=== PATIENT | male | born 1935 ===

== ENCOUNTER 2022-09-09 16:50 | Inpatient (IN) | payer MEDICARE ==
[~2022-09-09] VITALS: Ht 185.4 cm; Wt 77.2 kg
[2022-09-09] MEDS ORDERED: SODIUM CHLORIDE 0.9% 2,050 ML IV ONE (17:15)
[2022-09-09] MEDS ORDERED: 0.9% SODIUM CHLORIDE 10 ML SYRINGE IVP PRN (17:15)
[2022-09-09 17:26] LABS: GLUCOSE,POINT OF CARE > 600 MG/DL (70-110)
[2022-09-09] MEDS ORDERED: SODIUM CHLORIDE 0.9% 1,350 ML IV ONE (17:30)
[2022-09-09 17:39] LABS: BASOPHILS % (AUTO) 0.4 % (0.0-2.0); EOSINOPHILS % (AUTO) 0.1 % (1.0-6.0); HEMATOCRIT 42.2 % (41-53); HEMOGLOBIN 12.5 g/dL (13.5-17.5); LYMPHOCYTES # (AUTO) 1.4 K/uL (1.0-4.8); MEAN CORPUSCULAR HEMOGLOBIN 29.1 pg (26.0-34.0); MEAN CORPUSCULAR HGB CONC 29.7 G/dL (31.0-37.0); MEAN CORPUSCULAR VOLUME 98 fL (80-100); MONOCYTES # (AUTO) 0.8 K/uL (0.1-1.0); MONOCYTES % (AUTO) 6.8 % (2.0-9.0); NEUTROPHILS # (AUTO) 9.4 K/uL (1.8-7.7); NEUTROPHILS % (AUTO) 80.7 % (40.0-70.0); PLATELET COUNT (AUTO) 336 K/uL (150-450); RED BLOOD CELL COUNT(AUTO) 4.31 MIL/uL (4.50-5.90); RED CELL DISTRIBUTION WIDTH 16.6 % (11.5-14.5)
[2022-09-09] MEDS ORDERED: PHENYLEPHRINE HCL IN 0.9% NACL 400 MCG/10 ML SYRINGE IVP ONE (17:45)
[2022-09-09] MEDS ORDERED: INSULIN REGULAR, HUMAN 100 UNITS/ML IVP ONE ×2 (17:45→20:45)
[2022-09-09] MEDS ORDERED: PIPERACILLIN/TAZO 3.375 GM/D5W 50 ML IV ONE (17:45)
[2022-09-09 18:20] LABS: INR 1.2 (0.9-1.1)
[2022-09-09 18:32] LABS: ALANINE AMINOTRANSFERASE 38 U/L (12-78); ALBUMIN 1.9 g/dL (3.4-5.0); ALKALINE PHOSPHATASE 270 U/L (46-116); ANION GAP 28 mmol/L (8-16); ASPARTATE AMINOTRANSFERASE 43 U/L (15-37); BILIRUBIN,TOTAL 1.4 mg/dL (0.1-1.0); CARBON DIOXIDE 10 mmol/L (22-29); CHLORIDE 93 mmol/L (98-107); CREATININE 2.12 mg/dL (0.60-1.30); GLOMERULAR FILTR. RATE CALC 30 mL/min (>60); POTASSIUM 5.2 mmol/L (3.5-5.1); SODIUM SERUM 131 mmol/L (136-145); TOTAL PROTEIN, SERUM 6.6 g/dL (6.4-8.2); UREA NITROGEN, BLOOD 39 mg/dL (7-18)
[2022-09-09 18:34] LABS: GLUCOSE,RANDOM 710 mg/dL (70-110)
[2022-09-09 18:36] LABS: LACTIC ACID 10.3 mmol/L (0.4-2.0)
[2022-09-09 20:35] LABS: APPEARANCE,URINE CLEAR (CLEAR); BILIRUBIN,URINE NEGATIVE (NEGATIVE); GLUCOSE, URINE (UA) >=1000 mg/dL (NEGATIVE); KETONES,URINE 40-60 mg/dL (NEGATIVE); LEUKOCYTE ESTERASE ,URINE SMALL (NEGATIVE); NITRATE,URINE NEGATIVE (NEGATIVE); OCCULT BLOOD,URINE MODERATE (NEGATIVE); PROTEIN,URINE TRACE mg/dL (NEGATIVE); SPECIFIC GRAVITIY, URINE 1.023 (1.003-1.030); UROBILINOGEN,URINE <=1.0 mg/dL (<=1.0)
[2022-09-09 20:41] LABS: GLUCOSE,POINT OF CARE > 600 MG/DL (70-110)
[2022-09-09 20:44] LABS: BACTERIA,URINE None Seen /HPF (None Seen); RBC,URINE 0-2 /HPF (0-2); SQUAMOUS EPITHELIAL CELL,UR None Seen /LPF (None Seen)
[2022-09-09] MEDS ORDERED: PHENYLEPHRINE 200 MG/D5%-WATER 250 ML IV PRN (20:45)
[2022-09-09] MEDS ORDERED: DIGOXIN 250 MCG/ML 2 ML AMP IVP ONE (20:45)
[2022-09-09] MEDS ORDERED: *CLINICAL-MEROPENEM DOSING CLINICAL ONE (20:45)
[2022-09-09] MEDS ORDERED: SODIUM CHLORIDE 0.9% 500 ML IV ONE (20:45)
[2022-09-09] MEDS ORDERED: ACETAMINOPHEN 325 MG TABLET PO PRN (20:45)
[2022-09-09] MEDS ORDERED: ONDANSETRON HCL 4 MG/2 ML VIAL IVP PRN (20:45)
[2022-09-09] MEDS ORDERED: HEPARIN SODIUM,PORCINE 5,000 UNITS/ML VIAL IVP PRN ×2 (21:15)
[2022-09-09] MEDS: INSULIN REGULAR, HUMAN 100 UNITS in SODIUM CHLORIDE 0.9% 99 ML IV SCH ×2 (21:19)
[2022-09-09] MEDS ORDERED: SODIUM BICARBONATE [ADULT] 8.4% 50 MEQ/50 ML SYRINGE IVP ONE (21:30)
[2022-09-09] MEDS: SODIUM CHLORIDE 0.9% 1,000 ML IV SCH (21:31)
[2022-09-09] MEDS ORDERED: VANCOMYCIN 1GM/WATER(PEG/NADA) 200 ML IV PRN (21:45)
[2022-09-09] MEDS ORDERED: AMOX1TAB16 PO (22:10)
[2022-09-09] MEDS ORDERED: [UNRECOGNIZED DRUG - OTHER] BU (22:10)
[2022-09-09] MEDS ORDERED: VANCOMYCIN HCL 1.25 GM in DEXTROSE 5%-WATER 250 ML IV ONE (22:30)
[2022-09-09] MEDS: MEROPENEM 500 MG in SODIUM CHLORIDE 0.9% 50 ML IV SCH (22:34)
[2022-09-09 23:06] LABS: GLUCOSE,POINT OF CARE > 600 MG/DL (70-110)
[2022-09-09 23:39] LABS: CALCIUM, TOTAL 7.4 mg/dL (8.8-10.5); CREATININE 2.3 mg/dL (0.60-1.30); POTASSIUM 4.2 mmol/L (3.5-5.1)
[2022-09-10] MEDS ORDERED: HEPARIN SODIUM,PORCINE 5,000 UNITS/ML VIAL SQ SCH
[2022-09-10 00:11] LABS: GLUCOSE,POINT OF CARE > 600 MG/DL (70-110)
[2022-09-10] MEDS: HEPARIN SODIUM 25000 UNITS/D5W 250 ML IV PRN (00:52)
[2022-09-10 02:25] LABS: GLUCOSE,POINT OF CARE 559 MG/DL (70-110)
[2022-09-10 04:11] LABS: GLUCOSE,POINT OF CARE 579 MG/DL (70-110)
[2022-09-10 05:23] LABS: COVID AG,FIA SOURCE NASAL SWAB
[2022-09-10 05:31] LABS: GLUCOSE,POINT OF CARE 430 MG/DL (70-110)
[2022-09-10 05:41] LABS: CALCIUM, TOTAL 8.2 mg/dL (8.8-10.5); CREATININE 2.23 mg/dL (0.60-1.30); POTASSIUM 3.8 mmol/L (3.5-5.1)
[2022-09-10 06:02] LABS: BASOPHILS % (AUTO) 0.3 % (0.0-2.0); EOSINOPHILS % (AUTO) 0.2 % (1.0-6.0); HEMATOCRIT 39.4 % (41-53); HEMOGLOBIN 12.9 g/dL (13.5-17.5); LYMPHOCYTES # (AUTO) 0.9 K/uL (1.0-4.8); MEAN CORPUSCULAR HEMOGLOBIN 29.8 pg (26.0-34.0); MEAN CORPUSCULAR HGB CONC 32.8 G/dL (31.0-37.0); MEAN CORPUSCULAR VOLUME 91 fL (80-100); MONOCYTES # (AUTO) 1.2 K/uL (0.1-1.0); MONOCYTES % (AUTO) 7.6 % (2.0-9.0); NEUTROPHILS # (AUTO) 13.5 K/uL (1.8-7.7); PLATELET COUNT (AUTO) 324 K/uL (150-450); RED BLOOD CELL COUNT(AUTO) 4.33 MIL/uL (4.50-5.90); RED CELL DISTRIBUTION WIDTH 15.5 % (11.5-14.5)
[2022-09-10 06:19] LABS: NEUTROPHILS % (AUTO) 85.9 % (40.0-70.0)
[2022-09-10 06:51] LABS: GLUCOMETER DEV NAME(LOC) ERT.5; GLUCOSE,POINT OF CARE 375 MG/DL (70-110)
[2022-09-10 07:42] LABS: CALCIUM, TOTAL 8.2 mg/dL (8.8-10.5); CREATININE 2.04 mg/dL (0.60-1.30); POTASSIUM 3.6 mmol/L (3.5-5.1)
[2022-09-10 07:52] LABS: GLUCOSE,POINT OF CARE 383 MG/DL (70-110)
[2022-09-10 10:06] LABS: GLUCOSE,POINT OF CARE 274 MG/DL (70-110)
[2022-09-10] MEDS: SODIUM CHLORIDE 0.9% 1,000 ML IV SCH (11:07)
[2022-09-10] MEDS: MEROPENEM 500 MG in SODIUM CHLORIDE 0.9% 50 ML IV SCH ×2 (11:09→22:06)
[2022-09-10] MEDS: INSULIN REGULAR, HUMAN 100 UNITS in SODIUM CHLORIDE 0.9% 99 ML IV SCH ×2 (11:09)
[2022-09-10 11:31] LABS: GLUCOSE,POINT OF CARE 174 MG/DL (70-110)
[2022-09-10 12:00] VITALS: BP 89/43
[2022-09-10 12:04] LABS: CALCIUM, TOTAL 8.3 mg/dL (8.8-10.5); CREATININE 1.7 mg/dL (0.60-1.30); POTASSIUM 3.3 mmol/L (3.5-5.1)
[2022-09-10 12:16] LABS: GLUCOSE,POINT OF CARE 120 MG/DL (70-110)
[2022-09-10] MEDS ORDERED: INSREG SQ (13:26)
[2022-09-10] MEDS ORDERED: AMIODARONE HCL 360 MG in DEXTROSE 5%-WATER 242.8 ML IV ONE (13:30)
[2022-09-10] MEDS ORDERED: POTASSIUM CHLORIDE 20 MEQ ER TABLET PO PRN (13:45)
[2022-09-10] MEDS ORDERED: SODIUM CHLORIDE 0.9% 250 ML IV ONE (13:51)
[2022-09-10] MEDS: ALBUMIN HUMAN 25%-25GM/100ML 100 ML IV SCH ×2 (14:16→22:06)
[2022-09-10] MEDS: POTASSIUM CHL 10 MEQ/WATER 50 ML IV PRN ×3 (14:25→17:26)
[2022-09-10 15:27] LABS: CREATININE 1.55 mg/dL (0.60-1.30); POTASSIUM 3.7 mmol/L (3.5-5.1)
[2022-09-10 16:00] VITALS: BP 83/49
[2022-09-10] MEDS: INSULIN LISPRO 100 UNITS/ML SQ PRN ×2 (18:58→21:24)
[2022-09-10] MEDS ORDERED: DEXTROSE 50%-WATER 25 GM/50 ML SYRINGE IVP PRN (19:00)
[2022-09-10] MEDS ORDERED: AMIODARONE HCL 540 MG in DEXTROSE 5%-WATER 239.2 ML IV ONE (19:30)
[2022-09-10 20:00] VITALS: BP 121/77
[2022-09-10 20:16] LABS: GLUCOSE,POINT OF CARE 244 MG/DL (70-110)
[2022-09-11] VITALS: BP 104/85
[2022-09-11 00:31] LABS: GLUCOSE,POINT OF CARE 268 MG/DL (70-110)
[2022-09-11] MEDS ORDERED: SODIUM CHLORIDE 0.9% 250 ML IV ONE ×2 (01:10→22:42)
[2022-09-11] MEDS: SODIUM CHLORIDE 0.9% 1,000 ML IV SCH ×2 (01:50→16:15)
[2022-09-11] MEDS: HEPARIN SODIUM 25000 UNITS/D5W 250 ML IV PRN (01:51)
[2022-09-11 04:00] VITALS: BP 108/67
[2022-09-11] MEDS: ALBUMIN HUMAN 25%-25GM/100ML 100 ML IV SCH ×3 (05:48→21:36)
[2022-09-11 06:08] LABS: CALCIUM, TOTAL 8.4 mg/dL (8.8-10.5); CREATININE 1.35 mg/dL (0.60-1.30)
[2022-09-11] MEDS: INSULIN LISPRO 100 UNITS/ML SQ PRN ×4 (06:34→21:19)
[2022-09-11 08:00] VITALS: BP 140/81
[2022-09-11 08:51] LABS: GLUCOSE,POINT OF CARE 267 MG/DL (70-110)
[2022-09-11] MEDS ORDERED: VANCOMYCIN 1GM/WATER(PEG/NADA) 200 ML IV ONE (09:00)
[2022-09-11] MEDS: MEROPENEM 1 GM in SODIUM CHLORIDE 0.9% 100 ML IV SCH ×2 (10:16→21:36)
[2022-09-11 12:00] VITALS: BP 111/70
[2022-09-11] MEDS: AMIODARONE HCL 750 MG in DEXTROSE 5%-WATER 485 ML IV SCH (14:37)
[2022-09-11 16:00] VITALS: BP 114/82
[2022-09-11] MEDS: DIGOXIN 250 MCG/ML 2 ML AMP IVP SCH ×2 (17:51→23:36)
[2022-09-11 19:06] LABS: GLUCOSE,POINT OF CARE 396 MG/DL (70-110)
[2022-09-11 19:06] LABS: GLUCOSE,POINT OF CARE 290 MG/DL (70-110)
[2022-09-11 20:00] VITALS: BP 118/55
[2022-09-11] MEDS ORDERED: FURO40 PO (20:52)
[2022-09-11] MEDS ORDERED: ATOR40TA28 PO (20:52)
[2022-09-11] MEDS ORDERED: XALA2.5OS OU (20:52)
[2022-09-11] MEDS ORDERED: CYAN-42 IM (20:52)
[2022-09-11] MEDS ORDERED: METO-558 PO (20:52)
[2022-09-11] MEDS ORDERED: IODOG TP (20:52)
[2022-09-11] MEDS ORDERED: ASPI-1450 PO (20:52)
[2022-09-12] VITALS (7 sets, daily range): BP systolic 106–135; BP diastolic 53–80
[2022-09-12 01:26] LABS: GLUCOSE,POINT OF CARE 295 MG/DL (70-110)
[2022-09-12] MEDS: HEPARIN SODIUM 25000 UNITS/D5W 250 ML IV PRN (01:49)
[2022-09-12] MEDS: SODIUM CHLORIDE 0.9% 1,000 ML IV SCH ×2 (02:53→20:26)
[2022-09-12] MEDS: ALBUMIN HUMAN 25%-25GM/100ML 100 ML IV SCH ×3 (05:30→22:02)
[2022-09-12 06:01] LABS: GLUCOSE,POINT OF CARE 277 MG/DL (70-110)
[2022-09-12] MEDS: DIGOXIN 250 MCG/ML 2 ML AMP IVP SCH (06:04)
[2022-09-12] MEDS: INSULIN LISPRO 100 UNITS/ML SQ PRN ×4 (06:05→20:38)
[2022-09-12 06:12] LABS: BASOPHILS % (AUTO) 0.2 % (0.0-2.0); EOSINOPHILS % (AUTO) 1.3 % (1.0-6.0); HEMATOCRIT 30.8 % (41-53); HEMOGLOBIN 10.4 g/dL (13.5-17.5); LYMPHOCYTES # (AUTO) 1.7 K/uL (1.0-4.8); LYMPHOCYTES % (AUTO) 24.1 % (22.0-44.0); MEAN CORPUSCULAR HEMOGLOBIN 29.9 pg (26.0-34.0); MEAN CORPUSCULAR HGB CONC 33.8 G/dL (31.0-37.0); MEAN CORPUSCULAR VOLUME 89 fL (80-100); MONOCYTES # (AUTO) 0.5 K/uL (0.1-1.0); MONOCYTES % (AUTO) 7.5 % (2.0-9.0); NEUTROPHILS # (AUTO) 4.7 K/uL (1.8-7.7); NEUTROPHILS % (AUTO) 66.9 % (40.0-70.0); PLATELET COUNT (AUTO) 223 K/uL (150-450); RED BLOOD CELL COUNT(AUTO) 3.48 MIL/uL (4.50-5.90); RED CELL DISTRIBUTION WIDTH 15.2 % (11.5-14.5)
[2022-09-12 06:22] LABS: ALANINE AMINOTRANSFERASE 18 U/L (12-78); ALBUMIN 3.2 g/dL (3.4-5.0); ALKALINE PHOSPHATASE 130 U/L (46-116); ANION GAP 8 mmol/L (8-16); ASPARTATE AMINOTRANSFERASE 22 U/L (15-37); CALCIUM, TOTAL 8.3 mg/dL (8.8-10.5); CARBON DIOXIDE 26 mmol/L (22-29); CHLORIDE 103 mmol/L (98-107); CREATININE 0.98 mg/dL (0.60-1.30); GLOMERULAR FILTR. RATE CALC > 60 mL/min (>60); GLUCOSE,RANDOM 308 mg/dL (70-110); PHOSPHORUS 2.1 mg/dL (2.5-4.9); POTASSIUM 4.4 mmol/L (3.5-5.1); SODIUM SERUM 137 mmol/L (136-145); TOTAL PROTEIN, SERUM 5.7 g/dL (6.4-8.2); UREA NITROGEN, BLOOD 31 mg/dL (7-18)
[2022-09-12] MEDS ORDERED: VANCOMYCIN 1GM/WATER(PEG/NADA) 200 ML IV SCH (08:00)
[2022-09-12] MEDS: MEROPENEM 1 GM in SODIUM CHLORIDE 0.9% 100 ML IV SCH ×2 (10:10→18:03)
[2022-09-12] MEDS ORDERED: SODIUM PHOS,M-BASIC-D-BASIC 20 MMOL in DEXTROSE 5%-WATER 150 ML IV ONE (11:00)
[2022-09-12] MEDS: AMIODARONE HCL 750 MG in DEXTROSE 5%-WATER 485 ML IV SCH (14:07)
[2022-09-12 16:07] LABS: SPECIMENTYPE,BODY FLUID PLEURAL
[2022-09-12 18:19] LABS: APPEARANCE,SPUN,BODY FLUID CLEAR (CLEAR); APPEARANCE,UNSPUN,BODY FLUID CLOUDY (CLEAR); COLOR,BODY FLUID YELLOW (LT YELLOW); LYMPHOCYTES,BODY FLUID 54 %; NEUTROPHILS,BODY FLUID 46 %; PH, BODY FLUID 9; TOTAL VOLUME,BODY FLUID 1250 mL; WBC, BODY FLUID 360 /cu. mm.
[2022-09-12 18:20] LABS: BASOPHILS,BODY FLUID 0 %; EOSINOPHILS,BF (ANAL) 0 %; MONOCYTES,BODY FLUID 0 %
[2022-09-12 19:46] LABS: GLUCOSE,POINT OF CARE 303 MG/DL (70-110)
[2022-09-12] MEDS: VANCOMYCIN HCL 750 MG in DEXTROSE 5%-WATER 250 ML IV SCH (19:57)
[2022-09-12] MEDS: AMIODARONE HCL 200 MG TABLET PO SCH (20:42)
[2022-09-12 20:51] LABS: GLUCOSE,POINT OF CARE 372 MG/DL (70-110)
[2022-09-12] MEDS ORDERED: INSULIN GLARGINE,HUM.REC.ANLOG 100 UNITS/ML SQ SCH (22:45)
[2022-09-13] VITALS (7 sets, daily range): BP systolic 109–144; BP diastolic 61–108
[2022-09-13] MEDS: MEROPENEM 1 GM in SODIUM CHLORIDE 0.9% 100 ML IV SCH ×3 (01:22→17:59)
[2022-09-13 05:01] LABS: GLUCOMETER DEV NAME(LOC) 5N.2C; GLUCOSE,POINT OF CARE 228 MG/DL (70-110)
[2022-09-13] MEDS: ALBUMIN HUMAN 25%-25GM/100ML 100 ML IV SCH ×3 (05:42→22:55)
[2022-09-13] MEDS: INSULIN LISPRO 100 UNITS/ML SQ PRN ×4 (05:49→20:56)
[2022-09-13 06:06] LABS: GLUCOMETER DEV NAME(LOC) 5S.2C; GLUCOSE,POINT OF CARE 99 MG/DL (70-110)
[2022-09-13 06:45] LABS: BASOPHILS % (AUTO) 0.2 % (0.0-2.0); EOSINOPHILS % (AUTO) 1.8 % (1.0-6.0); HEMATOCRIT 31.8 % (41-53); HEMOGLOBIN 10.7 g/dL (13.5-17.5); LYMPHOCYTES % (AUTO) 28.5 % (22.0-44.0); MEAN CORPUSCULAR HEMOGLOBIN 29.5 pg (26.0-34.0); MEAN CORPUSCULAR HGB CONC 33.7 G/dL (31.0-37.0); MEAN CORPUSCULAR VOLUME 87 fL (80-100); MONOCYTES # (AUTO) 0.5 K/uL (0.1-1.0); MONOCYTES % (AUTO) 6.8 % (2.0-9.0); NEUTROPHILS # (AUTO) 4.5 K/uL (1.8-7.7); NEUTROPHILS % (AUTO) 62.7 % (40.0-70.0); PLATELET COUNT (AUTO) 196 K/uL (150-450); RED BLOOD CELL COUNT(AUTO) 3.65 MIL/uL (4.50-5.90)
[2022-09-13 07:07] LABS: ANION GAP 6 mmol/L (8-16); CALCIUM, TOTAL 7.9 mg/dL (8.8-10.5); CARBON DIOXIDE 27 mmol/L (22-29); CHLORIDE 105 mmol/L (98-107); CREATININE 0.73 mg/dL (0.60-1.30); GLOMERULAR FILTR. RATE CALC > 60 mL/min (>60); GLUCOSE,RANDOM 93 mg/dL (70-110); POTASSIUM 3.7 mmol/L (3.5-5.1); SODIUM SERUM 138 mmol/L (136-145); UREA NITROGEN, BLOOD 21 mg/dL (7-18)
[2022-09-13] MEDS: VANCOMYCIN HCL 750 MG in DEXTROSE 5%-WATER 250 ML IV SCH ×2 (08:14→19:41)
[2022-09-13] MEDS: AMIODARONE HCL 200 MG TABLET PO SCH ×2 (08:22→20:46)
[2022-09-13 09:46] LABS: GLUCOMETER DEV NAME(LOC) 5N.2C; GLUCOSE,POINT OF CARE 180 MG/DL (70-110)
[2022-09-13] MEDS: INSULIN GLARGINE,HUM.REC.ANLOG 100 UNITS/ML SQ SCH ×2 (10:38→20:55)
[2022-09-13] MEDS: APIXABAN 5 MG TABLET PO SCH ×2 (10:54→20:46)
[2022-09-13 11:31] LABS: GLUCOMETER DEV NAME(LOC) 5N.2C; GLUCOSE,POINT OF CARE 225 MG/DL (70-110)
[2022-09-13] MEDS ORDERED: APIXABAN 5 MG TABLET PO SCH (21:00)
[2022-09-13] MEDS ORDERED: INSULIN GLARGINE,HUM.REC.ANLOG 100 UNITS/ML SQ SCH (21:00)
[2022-09-13 21:07] LABS: GLUCOMETER DEV NAME(LOC) 5S.2C; GLUCOSE,POINT OF CARE 176 MG/DL (70-110)
[2022-09-13] MEDS: LATANOPROST 0.005% 2.5 ML OPHTHALMIC SOLUTION OU SCH (23:23)
[2022-09-14 00:19] VITALS: BP 125/66
[2022-09-14] MEDS: MEROPENEM 1 GM in SODIUM CHLORIDE 0.9% 100 ML IV SCH ×3 (01:17→17:41)
[2022-09-14 01:26] LABS: GLUCOMETER DEV NAME(LOC) 5N.2C; GLUCOSE,POINT OF CARE 176 MG/DL (70-110)
[2022-09-14 03:50] VITALS: BP 121/71
[2022-09-14] MEDS: SODIUM CHLORIDE 0.9% 1,000 ML IV SCH (04:14)
[2022-09-14 04:46] LABS: GLUCOMETER DEV NAME(LOC) 5S.2C; GLUCOSE,POINT OF CARE 171 MG/DL (70-110)
[2022-09-14] MEDS: ALBUMIN HUMAN 25%-25GM/100ML 100 ML IV SCH ×3 (06:07→21:36)
[2022-09-14 07:17] LABS: ANION GAP 5 mmol/L (8-16); CALCIUM, TOTAL 8.3 mg/dL (8.8-10.5); CARBON DIOXIDE 30 mmol/L (22-29); CHLORIDE 103 mmol/L (98-107); CREATININE 0.81 mg/dL (0.60-1.30); GLOMERULAR FILTR. RATE CALC > 60 mL/min (>60); GLUCOSE,RANDOM 101 mg/dL (70-110); POTASSIUM 4.2 mmol/L (3.5-5.1); SODIUM SERUM 138 mmol/L (136-145); UREA NITROGEN, BLOOD 17 mg/dL (7-18); VANCOMYCIN,RANDOM 15.1 mcg/mL (25.0-50.0)
[2022-09-14 07:37] VITALS: BP 136/74
[2022-09-14] MEDS: APIXABAN 5 MG TABLET PO SCH ×2 (09:13→21:16)
[2022-09-14] MEDS: VANCOMYCIN 1GM/WATER(PEG/NADA) 200 ML IV SCH ×3 (09:13→21:14)
[2022-09-14] MEDS: AMIODARONE HCL 200 MG TABLET PO SCH ×2 (09:14→21:16)
[2022-09-14] MEDS: ATORVASTATIN CALCIUM 40 MG TABLET PO SCH (09:14)
[2022-09-14] MEDS: INSULIN LISPRO 100 UNITS/ML SQ PRN ×3 (11:59→21:22)
[2022-09-14 12:02] LABS: GLUCOMETER DEV NAME(LOC) 5N.2C; GLUCOSE,POINT OF CARE 191 MG/DL (70-110)
[2022-09-14 12:12] LABS: LACTATE DEHYDROGENASE 204 U/L (85-227); TOTAL PROTEIN, SERUM 5.7 g/dL (6.4-8.2)
[2022-09-14 12:24] VITALS: BP 122/68
[2022-09-14] MEDS ORDERED: DEXTROSE 50%-WATER 25 GM/50 ML SYRINGE IVP PRN (13:00)
[2022-09-14 16:33] VITALS: BP 130/76
[2022-09-14 18:21] LABS: GLUCOMETER DEV NAME(LOC) 5N.2C; GLUCOSE,POINT OF CARE 230 MG/DL (70-110)
[2022-09-14 19:18] VITALS: BP 128/74
[2022-09-14 20:46] LABS: GLUCOMETER DEV NAME(LOC) 5N.2C; GLUCOSE,POINT OF CARE 177 MG/DL (70-110)
[2022-09-14] MEDS: LATANOPROST 0.005% 2.5 ML OPHTHALMIC SOLUTION OU SCH (20:49)
[2022-09-14] MEDS ORDERED: INSULIN GLARGINE,HUM.REC.ANLOG 100 UNITS/ML SQ SCH (21:00)
[2022-09-15] MEDS: MEROPENEM 1 GM in SODIUM CHLORIDE 0.9% 100 ML IV SCH ×3 (02:55→17:22)
[2022-09-15] MEDS: ALBUMIN HUMAN 25%-25GM/100ML 100 ML IV SCH ×3 (05:58→22:12)
[2022-09-15 06:03] LABS: ANION GAP 6 mmol/L (8-16); CALCIUM, TOTAL 8.4 mg/dL (8.8-10.5); CARBON DIOXIDE 29 mmol/L (22-29); CHLORIDE 103 mmol/L (98-107); CREATININE 0.66 mg/dL (0.60-1.30); GLOMERULAR FILTR. RATE CALC > 60 mL/min (>60); GLUCOSE,RANDOM 50 mg/dL (70-110); SODIUM SERUM 138 mmol/L (136-145); UREA NITROGEN, BLOOD 14 mg/dL (7-18)
[2022-09-15 06:18] VITALS: BP 148/91
[2022-09-15 06:37] LABS: GLUCOMETER DEV NAME(LOC) 5N.2C; GLUCOSE,POINT OF CARE 157 MG/DL (70-110)
[2022-09-15 06:37] LABS: GLUCOMETER DEV NAME(LOC) 5N.2C; GLUCOSE,POINT OF CARE 46 MG/DL (70-110)
[2022-09-15 07:43] VITALS: BP 147/72
[2022-09-15] MEDS: APIXABAN 5 MG TABLET PO SCH ×2 (08:52→21:22)
[2022-09-15] MEDS: ATORVASTATIN CALCIUM 40 MG TABLET PO SCH (08:52)
[2022-09-15] MEDS: AMIODARONE HCL 200 MG TABLET PO SCH ×2 (08:53→21:48)
[2022-09-15] MEDS: VANCOMYCIN 1GM/WATER(PEG/NADA) 200 ML IV SCH ×2 (08:55→20:00)
[2022-09-15] MEDS: INSULIN LISPRO 100 UNITS/ML SQ PRN ×3 (12:50→21:27)
[2022-09-15] MEDS ORDERED: SODIUM CHLORIDE 0.9% 100 ML ONE (12:54)
[2022-09-15] MEDS: GuaiFENesin/D-METHORPHAN/PHENYLEPH 5 ML LIQUID ORAL.SYG PO PRN ×2 (12:59→21:49)
[2022-09-15 16:21] VITALS: BP 137/69
[2022-09-15 20:37] VITALS: BP 138/72
[2022-09-15] MEDS: LATANOPROST 0.005% 2.5 ML OPHTHALMIC SOLUTION OU SCH (21:22)
[2022-09-15] MEDS: INSULIN GLARGINE,HUM.REC.ANLOG 100 UNITS/ML SQ SCH (21:28)
[2022-09-15 22:56] LABS: GLUCOMETER DEV NAME(LOC) 6N.1; GLUCOSE,POINT OF CARE 352 MG/DL (70-110)
[2022-09-15 22:57] LABS: GLUCOMETER DEV NAME(LOC) 6N.1; GLUCOSE,POINT OF CARE 250 MG/DL (70-110)
[2022-09-15 22:57] LABS: GLUCOMETER DEV NAME(LOC) 6N.1; GLUCOSE,POINT OF CARE 189 MG/DL (70-110)
[2022-09-16] MEDS: MEROPENEM 1 GM in SODIUM CHLORIDE 0.9% 100 ML IV SCH ×2 (02:00→10:22)
[2022-09-16 03:53] VITALS: BP 147/84
[2022-09-16] MEDS: ALBUMIN HUMAN 25%-25GM/100ML 100 ML IV SCH ×2 (06:12→14:53)
[2022-09-16] MEDS ORDERED: SODIUM CHLORIDE 0.9% 500 ML IV ONE (06:31)
[2022-09-16 07:03] LABS: ANION GAP 7 mmol/L (8-16); CALCIUM, TOTAL 8.5 mg/dL (8.8-10.5); CARBON DIOXIDE 28 mmol/L (22-29); CHLORIDE 100 mmol/L (98-107); CREATININE 0.68 mg/dL (0.60-1.30); GLOMERULAR FILTR. RATE CALC > 60 mL/min (>60); GLUCOSE,RANDOM 114 mg/dL (70-110); POTASSIUM 4.2 mmol/L (3.5-5.1); SODIUM SERUM 135 mmol/L (136-145); UREA NITROGEN, BLOOD 17 mg/dL (7-18); VANCOMYCIN,RANDOM 20.5 mcg/mL (25.0-50.0)
[2022-09-16] MEDS: APIXABAN 5 MG TABLET PO SCH (08:07)
[2022-09-16] MEDS: AMIODARONE HCL 200 MG TABLET PO SCH (08:07)
[2022-09-16] MEDS: ATORVASTATIN CALCIUM 40 MG TABLET PO SCH (08:08)
[2022-09-16] MEDS: VANCOMYCIN 1GM/WATER(PEG/NADA) 200 ML IV SCH (08:09)
[2022-09-16 08:25] VITALS: BP 177/105
[2022-09-16 09:30] VITALS: BP 155/95
[2022-09-16] MEDS: INSULIN GLARGINE,HUM.REC.ANLOG 100 UNITS/ML SQ SCH (09:52)
[2022-09-16] MEDS ORDERED: METOPROLOL TARTRATE 25 MG TABLET PO SCH (12:00)
[2022-09-16] MEDS: INSULIN LISPRO 100 UNITS/ML SQ PRN (12:07)
[2022-09-16 13:51] LABS: GLUCOMETER DEV NAME(LOC) 6N.1; GLUCOSE,POINT OF CARE 191 MG/DL (70-110)
[2022-09-16 13:51] LABS: GLUCOMETER DEV NAME(LOC) 6N.1; GLUCOSE,POINT OF CARE 114 MG/DL (70-110)
[2022-09-16 16:12] VITALS: BP 127/67
[2022-09-17 02:16] LABS: GLUCOMETER DEV NAME(LOC) 6N.2B; GLUCOSE,POINT OF CARE 142 MG/DL (70-110)
== END 2022-09-16 17:40 | DRG 871 ==
LOC: EMS 16:53 → AHU 20:16 → ICU 09-10 06:03 → 5N 09-12 19:05 → 6S 09-15 08:56
PROVIDERS: ADMIT Internal Medicine; ATTEND Internal Medicine
PROC: 0W993ZZ Drainage of Right Pleural Cavity, Percutaneous Approach (ICD-10-PCS; principal; 2022-09-12)
PROC: 05HY33Z Insertion of Infusion Device into Upper Vein, Percutaneous Approach (ICD-10-PCS; 2022-09-12)
DX: A41.9 Sepsis, unspecified organism (principal); E43 Unspecified severe protein-calorie malnutrition; J69.0 Pneumonitis due to inhalation of food and vomit; R65.21 Severe sepsis with septic shock; G93.41 Metabolic encephalopathy; I21.A1 Myocardial infarction type 2; I13.0 Hypertensive heart and chronic kidney disease with heart failure and stage 1 through stage 4 chronic kidney disease, or unspecified chronic kidney disease; I50.30 Unspecified diastolic (congestive) heart failure; N17.9 Acute kidney failure, unspecified; Z66 Do not resuscitate; Z68.22 Body mass index [BMI] 22.0-22.9, adult; E11.22 Type 2 diabetes mellitus with diabetic chronic kidney disease; E88.09 Other disorders of plasma-protein metabolism, not elsewhere classified; E11.51 Type 2 diabetes mellitus with diabetic peripheral angiopathy without gangrene; E11.65 Type 2 diabetes mellitus with hyperglycemia; T68.XXXA Hypothermia, initial encounter; E78.5 Hyperlipidemia, unspecified; Y95 Nosocomial condition; X58.XXXA Exposure to other specified factors, initial encounter; I48.91 Unspecified atrial fibrillation; E86.9 Volume depletion, unspecified; N18.9 Chronic kidney disease, unspecified; Z20.822 Contact with and (suspected) exposure to COVID-19; Z89.439 Acquired absence of unspecified foot; Z79.01 Long term (current) use of anticoagulants; Z79.4 Long term (current) use of insulin; Z79.899 Other long term (current) drug therapy
CPT/HCPCS: 32555; 51701; 70450; 71045; 71250; 72192; 74150; 76770; 76942; 80048; 80053; 80202; 81001; 82010; 82465; 82945; 82962; 83605; 83615; 83735; 83986; 84100; 84132; 84145; 84155; 84157; 84484; 85025; 85610; 85730; 87015; 87040; 87075; 87081; 87086; 87101; 87186; 87205; 87206; 89051; 92523; 92610; 93005; 93306; 93925; 97110; 97163; 97530; 99285; G0378; J0282; J1160; J1644; J1815; J2185; J2370; J2405; J2543; J3370; J3480; J3490; J7030; J7040; J7050; J7060; P9046; Q9967; 36415-L1; 36415-TC; 87070; X7700